=== PATIENT | male | born 1990 | race Caucasian/White ===

== ENCOUNTER 2018-07-31 09:09 | Emergency (ER) ==
[2018-07-31 09:17] VITALS: BP 158/79; TEMP 98.8; BMI 27.3
--- NOTE | 2018-07-31 10:30 | DI ---
EXAM: CHEST FRONTAL AND LATERAL VIEWS HISTORY: Chest pain. COMPARISON: None FINDINGS: Heart size and mediastinal contour within normal limits. No acute infiltrates. Megan l vascularity with no pleural fluid or pneumothorax. The bony thorax has no acute finding. Upright exam has no visible free air under the hemidiaphragms. IMPRESSION: No acute process.
--- NOTE | 2018-07-31 11:07 | ED.PDOC ---
General ED Provider: Dr. GENARO DE LEON Chief Complaint: Non-specific Complaint Stated Complaint: chest pain after an energy drink and and coffee Time Seen by Physician: 09:12 Mode of Arrival: Walk-In Information Source: Patient Exam Limitations: No limitations Primary Care Provider: HAY LESLIE Nursing and Triage Documentation Reviewed and Agree: Yes Does patient meet sepsis criteria?: Yes If yes, has appropriate treatment been initiated?: No System Inflammatory Response Syndrome: Not Applicable Sepsis Protocol: For patient's 13 years and over: Temp is 96.8 and below OR 101 and greater Pulse >90 BPM Resp >20/minute Acutely Altered Mental Status Are patient's symptoms suggestive of a new infection, such as: -Pneumonia -Skin, Soft Tissue -Endocarditis -UTI -Bone, Joint Infection -Implantable Device -Acute Abdominal Infection -Wound Infection -Meningitis -Blood Stream Catheter Infection -Unknown Cardiovascular Complaint Exam - Chest Pain Complaint/Exam Onset: Sudden Duration: had an energy drink this morning developed chest discomfort had coffee too Symptoms Are: Resolved Length of Chest Pain Episodes: 10 min Initial Severity: Moderate Current Severity: None Location: Reports: Diffuse, Midsternal Pain Radiates: Reports: None Character: Reports: Aching Aggravating: Reports: None Alleviating: Reports: Spontaneous resolution Associated Signs and Symptoms: Denies: Diaphoresis, Nausea, Vomiting, Fever, Palpitations, Cough, Hemoptysis, Back pain, Abdominal pain, Dizziness, Short of air, Calf pain, Calf swelling Related Surgical History: Reports: None History of Healthcare-Acquired Pneumonia: Reports: No AMI/ACS Risk Factors: Reports: None TAD Risk Factors: Reports: None Pulmonary Embolism Risk Factors: Reports: None Prior Care for this Complaint: No Recent Stress Test: No Recent Echo/LV Function: No JVD Present: No Subcutaneous Emphysema Present: No Diminshed Breath Sounds: No Reproducible Chest Wall Pain: No Bilateral Pulses Present: Yes Unequal Pulses Noted: No If Risk Factors for AMI/ACS Consider: EKG, Cardiac Enzymes Care and Dx Studies Discussed With: Family (girlfriend ) Quality Indicators For Acute NC or Cardiac Chest Pain: EKG in 10min. Review of Systems - Review Of Systems Constitutional: Reports: No symptoms Eyes: Reports: No symptoms Ears, Nose, Mouth, Throat: Reports: No symptoms Respiratory: Reports: No symptoms Cardiac: Reports: Chest pain GI: Reports: No symptoms : Reports: No symptoms Musculoskeletal: Reports: No symptoms Skin: Reports: No symptoms Neurological: Reports: No symptoms Endocrine: Reports: No symptoms Hematologic/Lymphatic: Reports: No symptoms All Other Systems: Reviewed and Negative Past Medical History - Past Medical History Previously Healthy: Yes Endocrine: Reports: None Cardiovascular: Reports: None Respiratory: Reports: None Hematological: Reports: None Gastrointestinal: Reports: None Genitourinary: Reports: None Neuro/Psych: Reports: None Musculoskeletal: Reports: None Cancer: Reports: None - Surgical History General Surgical History: Reports: None - Family History Family History: Reports: None - Social History Smoking Status: Current every day smoker Hx Substance Use: No Alcohol Screening: Occasionally - Immunizations Tetanus Shot up to Date: Yes Physical Exam - Physical Exam Appearance: Well-appearing, No pain distress, Well-nourished Eyes: JAMES, EOMI, Conjunctiva clear ENT: Ears normal, Nose normal, Oropharynx normal Respiratory: Airway patent, Breath sounds clear, Breath sounds equal, Respirations nonlabored Cardiovascular: RRR, Pulses normal, No rub, No murmur GI/: Soft, Nontender, No masses, Bowel sounds normal, No Organomegaly Musculoskeletal: Normal strength, ROM intact, No edema, No calf tenderness Skin: Warm, Dry, Normal color Neurological: Sensation intact, Motor intact, Reflexes intact, Cranial nerves intact, Alert, Oriented Psychiatric: Affect appropriate, Mood appropriate Interpretation - Radiology Interpretation Radiology Interpretation By: Radiologist Radiology Results: Negative Exam Interpreted: 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 Rhythm: Sinus - EKG Interpretation Rate: Normal Rhythm: Sinus Ectopy: None [place]: NL ST Segment: Normal Re-Evaluation - Re-Evaluation Time of Re-Evaluation: 10:00 Status: Improved Vital Signs Stable: Yes Pain Level: 0 Appearance: NAD Lungs: Clear Skin: Warm and Dry Neuro: Alert and Oriented X3 CV: RRR - Re-Evaluation Time of Re-Evaluation: 11:09 (hear score discussed with mirian present due to smoking1/2 pk/dasy his score was ) Status: Improved Vital Signs Stable: Yes Pain Level: 0 Appearance: NAD Skin: Warm and Dry Neuro: Alert and Oriented X3 CV: RRR Critical Care Note - Critical Care Note Total Time (mins): 0 Course - Course Hematology/Chemistry: 07/31/18 09:48 07/31/18 09:48 Orders, Labs, Meds: Lab Review 05/07/31/18 07/31/18 09:45 09:48 09:48 WBC 7.51 RBC 4.50 L Hgb 14.6 Hct 41.2 L MCV 91.6 MCH 32.4 H MCHC 35.4 RDW Coeff of Malia 11.9 Plt Count 241 Immature Gran % (Auto) 0.7 Neut % (Auto) 57.6 Lymph % (Auto) 31.2 [place] % (Auto) 8.4 Eos % (Auto) 1.2 Baso % (Auto) 0.9 Immature Gran # (Auto) 0.1 Neut # (Auto) 4.3 Lymph # (Auto) 2.3 [place] # (Auto) 0.6 Eos # (Auto) 0.1 Baso # (Auto) 0.1 Sodium 136.2 Potassium 3.43 L Chloride 101.2 Carbon Dioxide 27.1 Anion Gap 11.33 BUN 10.1 Creatinine 0.72 Estimated GFR (MDRD) 131.00 BUN/Creatinine Ratio 14.02 Glucose 101.2 Calcium 9.39 Total Bilirubin 0.46 AST 34.9 ALT 25.8 Alkaline Phosphatase 101.8 Total Creatine Kinase 353.9 H CK-MB (CK-2) 2.450 H CK-MB (CK-2) % 0.6900 Troponin I < 0.012 Total Protein 6.79 Albumin 4.53 Globulin 2.26 Albumin/Globulin Ratio 2.00 Urine Opiates Screen Negative Ur Oxycodone Screen Negative Urine Methadone Screen Negative Ur Propoxyphene Screen Negative Ur Barbiturates Screen Negative U Tricyclic Antidepress Negative Ur Phencyclidine Scrn Negative Ur Amphetamine Screen Negative U Methamphetamines Scrn Negative U Benzodiazepines Scrn Negative Urine Cocaine Screen Negative U Cannabinoids Screen Negative Orders Category Date Time Status EKG-(ED ONLY) Stat CARDIO 07/31/18 09:32 Completed ED IV/MEDIPORT/POWERPORT .ONCE EMERGENCY 07/31/18 09:40 Active CBC W/ AUTO DIFF Stat LAB 07/31/18 09:48 Completed COMPREHENSIVE METABOLIC PANEL Stat LAB 07/31/18 09:48 Completed CREATINE KINASE Stat LAB 07/31/18 09:48 Completed TROPONIN I Stat LAB 07/31/18 09:48 Completed URINE DRUG SCREEN (RAPID FOR ED) [DRUG SCREEN, URINE, LAB 07/31/18 09:45 Completed RAPID] Stat 0.9 % Sodium Chloride [Saline Flush] MEDS 07/31/18 09:40 Active 1 syr IVF PRN PRN CHEST, 2 VIEWS PA & LAT Stat RADS 07/31/18 09:41 Completed Medications Generic Name Dose Route Start Last Admin Trade Name Freq PRN Reason Stop Dose Admin Sodium Chloride 1 syr 07/31/18 09:40 Saline Flush IVF PRN PRN To flush IV Vital Signs: Temp Pulse Resp BP Pulse Ox 07/31/18 09:11 98.8 F 113 H 26 H 158/79 H 99 JOLENE Risk Score JOLENE Risk Score: Risk Score Odds of by 30D 0 0.1 (0.1-0.2) 1 0.3 (0.2-0.3) 2 0.4 (0.3-0.5) 3 0.7 (0.6-0.9) 4 1.2 (1.0-1.5) 5 2.2 (1.9-2.6) 6 3.0 (2.5-3.6) 7 4.8 (3.8-6.1) Departure - Departure Time of Disposition: 11:11 Disposition: HOME SELF-CARE Discharge Problem: Chest pain Qualifiers: Chest pain type: unspecified Qualified Code(s): R07.9 - Chest pain, unspecified Instructions: Chest Pain (ED), Chest Pain (DC) Condition: Good Pt referred to PMD for follow-up: Yes IPMP verified?: No Additional Instructions: Please call your Family Physician as soon as possible to schedule a follow-up appointment.as soon as you can see your doctoor take your lab report and ekg reports to him. if chest pain reoccurs return to E/R Allergies/Adverse Reactions: Allergies No Known Allergies Allergy (Unverified 07/31/18 09:43) Home Medications: Ambulatory Orders 1 [No Reported Medications] 07/31/18 Disposition Discussed With: Patient
== END 2018-07-31 11:20 | disposition home or self-care (01) ==
LOC: ED 09:09
DX: R07.9 Chest pain, unspecified (principal); F17.210 Nicotine dependence, cigarettes, uncomplicated
CPT/HCPCS: 36415; 80053; 80306; 82550; 82553; 84484; 85025; 93005; 93010; 99283